=== PATIENT | male | born 1935 | race Caucasian/White ===

== ENCOUNTER 2016-05-11 09:32 | Day surgery (SDC) | payer MEDICARE, OTHER ==
[~2016-05-11] VITALS: Ht 175.3 cm; Wt 81.2 kg
[2016-05-11] VITALS (33 sets, daily range): BP systolic 84–137; BP diastolic 49–72; PULSE 62–78; RESP 6–20; Ht 175.3 cm; Wt 81.2 kg
[2016-05-11] MEDS ORDERED: LACTATED RINGER'S 1,000 ML IV* SCH (10:30)
[2016-05-11] MEDS ORDERED: CEFAZOLIN 2 GM/50 ML (PMX) 50 ML IVPB SCH (10:30)
--- NOTE | 2016-05-11 11:07 | RADRPT ---
PROCEDURE: XR Chest 1 View. CLINICAL INDICATION: Abnormal breath sounds, preop. TECHNIQUE: AP view of the chest were obtained. COMPARISON: None. FINDINGS: The cardiomediastinal silhouette is within normal limits. The lungs are hypoinflated. Scattered ate lectasis is noted in the bilateral lower lobes. No consolidations are identified. No pneumothorax i s seen. Osseous structures are intact. IMPRESSION: Hypoinflated lungs with scattered atelectasis in the bilateral lower lobes. RPTAT: AA .Harry Turk MD, MD Date Time Electronically viewed and signed by .Harry Turk MD, MD on 05/11/2016 11:07 .P/
[2016-05-11] MEDS ORDERED: HYDR12.58 PO (11:15)
[2016-05-11] MEDS ORDERED: LOSA50TA6 PO (11:15)
[2016-05-11] MEDS ORDERED: BUPIVACAINE 0.25%/EPI (SDV) 30 ML INJ ONE (11:52)
[2016-05-11] MEDS ORDERED: SURGIFOAM POWDER 1 GM KIT ONE (11:52)
[2016-05-11] MEDS ORDERED: CA CHLORIDE 10% 10 ML SYRINGE ONE (11:52)
[2016-05-11] MEDS ORDERED: POLYMYXIN/BACITRACIN 1L IRRIG ONE (11:53)
[2016-05-11] MEDS ORDERED: THROMBIN 5000 UNIT VIAL ONE (11:53)
[2016-05-11] MEDS ORDERED: LIDOCAINE 2% (SDV) 5 ML INJ ONE (12:11)
[2016-05-11] MEDS ORDERED: MEPERIDINE 100 MG INJ ONE (12:11)
[2016-05-11] MEDS ORDERED: NEOSTIGMINE 3 MG/3 ML SYRINGE ONE ×2 (12:11→14:19)
[2016-05-11] MEDS ORDERED: SUCCINYLCHOLINE CHLORIDE 100 MG/5 ML SYG IV ONE (12:11)
[2016-05-11] MEDS ORDERED: GLYCOPYRROLATE 1 MG INJ ONE (12:11)
[2016-05-11] MEDS ORDERED: PROPOFOL 20 ML ONE (12:11)
[2016-05-11] MEDS ORDERED: ROCURONIUM 50 MG INJ ONE ×2 (12:11→12:55)
--- NOTE | 2016-05-11 12:11 | HPN ---
Date/Time of Note Date/Time of Note DATE: 05/11/16 TIME: 12:10 Interval H&P Admission Note Pt. seen H&P reviewed: No system changes BENJI HAYWOOD PA-C May 11, 2016 12:10
[2016-05-11] MEDS ORDERED: MELO7.5O PO (12:26)
[2016-05-11] MEDS ORDERED: TAMS-14 PO (12:26)
[2016-05-11] MEDS ORDERED: TEST1.25 TD (12:26)
[2016-05-11] MEDS ORDERED: ATOR10TA65 PO (12:26)
[2016-05-11] MEDS ORDERED: NALOXONE (0.4 MG/ML) INJ IV PRN (12:30)
[2016-05-11] MEDS ORDERED: ACETAMINOPHEN 325 MG TAB PO PRN (12:30)
[2016-05-11] MEDS ORDERED: CEFAZOLIN 1 GM/50 ML (PMX) 50 ML IVPB SCH (12:30)
[2016-05-11] MEDS ORDERED: ONDANSETRON 4 MG INJ IV PRN ×2 (12:30→13:00)
[2016-05-11] MEDS ORDERED: DIPHENHYDRAMINE 50 MG INJ IV PRN ×2 (12:30→13:00)
[2016-05-11] MEDS ORDERED: AL HYDROX/MG HYDROX/SIMETH 30 ML CUP PO PRN (12:30)
[2016-05-11] MEDS ORDERED: BISACODYL 10 MG SUPP PR PRN (12:30)
[2016-05-11] MEDS ORDERED: HYDROmorphONE 1 MG/ML SYG IV PRN (12:30)
[2016-05-11] MEDS ORDERED: CEPASTAT LOZENGE MT PRN (12:30)
[2016-05-11] MEDS ORDERED: CYCLOBENZAPRINE 10 MG TAB PO PRN (12:30)
[2016-05-11] MEDS ORDERED: OXYCODONE/ACETAMINOPHEN (5/325) TAB PO PRN (12:30)
[2016-05-11] MEDS ORDERED: morphine (1 MG/ML) 10ML SYRINGE IV PRN ×2 (13:00)
[2016-05-11] MEDS ORDERED: MIDAZOLAM 1 MG/ML 2 ML INJ IV PRN (13:00)
[2016-05-11] MEDS ORDERED: FENTAnyl 50 MCG/ML VIAL IV PRN ×2 (13:00)
[2016-05-11] MEDS ORDERED: LABETALOL HCL 20MG INJ IV PRN (13:00)
[2016-05-11] MEDS ORDERED: HYDROmorphONE (0.2 MG/ML) 10ML SYG IV PRN ×2 (13:00)
[2016-05-11] MEDS ORDERED: METOCLOPRAMIDE 10 MG INJ IV PRN (13:00)
[2016-05-11] MEDS ORDERED: MEPERIDINE 25 MG INJ IV PRN (13:00)
[2016-05-11] MEDS ORDERED: EPHEDrine SULFATE 50 MG/5 ML SYG IV PRN (13:00)
[2016-05-11] MEDS ORDERED: hydrALAzine 20 MG INJ IV PRN (13:00)
--- NOTE | 2016-05-11 14:18 | RADRPT ---
PROCEDURE: XR Lumbar Spine one view. CLINICAL INDICATION: Low back pain. Intraoperative. TECHNIQUE: Prone portable cross-table lateral. COMPARISON: No prior studies are available for comparison. FINDINGS: For the purposes of this report, the last apparent true disc level is considered to be L5-S1. Based on this, the posterior surgical instrument is present at the mid L4 level. IMPRESSION: 1. Intraoperative imaging as described above. RPTAT: QQ .Jamal Iqbal MD, MD Date Time Electronically viewed and signed by .Jamal Iqbal MD, on 05/11/2016 14:18 .R/
--- NOTE | 2016-05-11 14:18 | RADRPT ---
PROCEDURE: XR Lumbar Spine one view. CLINICAL INDICATION: Low back pain. Intraoperative. TECHNIQUE: Prone portable cross-table lateral. COMPARISON: No prior studies are available for comparison. FINDINGS: For the purposes of this report, the last apparent true disc level is considered to be L5-S1. Based on this, the posterior needle marker is are present at L3 and L4 spinous process levels. A posteri or surgical device is also present at L4-5. IMPRESSION: 1. Intraoperative imaging as described above. RPTAT: QQ .Jamal Iqbal MD, MD Date Time Electronically viewed and signed by .Jamal Iqbal MD, on 05/11/2016 14:18 .R/
[2016-05-11] MEDS ORDERED: ONDANSETRON 4 MG INJ ONE (14:19)
[2016-05-11] MEDS: HYDROmorphONE 0.2 MG/ML PCA IV SCH ×2 (15:55→15:57)
--- NOTE | 2016-05-11 16:23 | OPR ---
DATE OF OPERATION: 05/11/2016 PREOPERATIVE DIAGNOSES: 1. History of L4-L5 unstable listhesis and stenosis, status post decompression with placement of Co flex. 2. Spinous process fracture with loosening of Coflex. 3. Residual spinal stenosis and radiculopathy. POSTOPERATIVE DIAGNOSES: 11. History of L4-L5 unstable listhesis and stenosis, status post decompression with placement of C oflex. 2. Spinous process fracture with loosening of Coflex. 3. Residual spinal stenosis and radiculopathy. OPERATION PERFORMED: 1. Removal of Coflex at L4-L5. 2. Revision right L4-L5 decompression with decompression of L4 and L5 nerve roots. 3. Lateral localizing film x2. 4. Use of operative microscope. 5. Intraoperative neuromonitoring (2 hours). PRIMARY SURGEON: Hua Contreras MD VOLTAGE REGULATOR ASSEMBLER: KRISTIE Cano NEED FOR GENERAL MACHINIST: During this spinal surgical procedure, my assistant auditor was used to retrac t and protect the spinal nerves and dural sac. My assistant auditor also employed the suction catheters to evacuate blood from the surgical field to improve visualization of the neural structures. The timoteo tant was medically necessary to facilitate the completion of the surgery in a safe and expeditious tigist. State of [place] regulations, as well as hospital bylaws, preclude the use of non-license d health care personnel, such as operating room technicians, to perform these functions. FINDINGS: Neuromonitoring at the start of the case revealed right L4 amplitude down 20%, right L5 a mplitude down 50%. At the end of the case nerve signals returned to normal. The Coflex device was loose at the spinous process of L5. There is stenosis at L4-L5. ESTIMATED BLOOD LOSS: Less than 40 mL. DRAINS: None. SPECIMENS: Coflex was sent to Pathology. COMPLICATIONS OF PROCEDURES: None. ANESTHESIOLOGIST: Dr. Beckett. TYPE OF ANESTHESIA: General. INDICATIONS FOR PROCEDURE: This 89-year-old gentleman who underwent decompression with placement of Coflex device elsewhere. His left leg symptoms improved but he has residual right leg radiculopath y. Preoperative imaging study showed a possible fracture at L5. Given this the failure of nonopera tive measures, I recommended proceeding with above-mentioned surgery. Preoperatively, we discussed the risks, benefits, and alternatives. He understood and wished to proceed. DESCRIPTION OF PROCEDURE IN DETAIL: The patient was identified in the preoperative holding area and taken to the operating room, where he was successfully placed under general anesthesia. He was giv en antibiotics. Neuromonitoring leads were placed, sequential compressive devices were applied. Ne uromonitoring was utilized during the procedure for 2 hours to include SSEP, MEP and EMG. This was performed by [employer] Start time was 1 p.m., closure time was 3 p.m. The patient was plac ed in downward turned prone position over Noam frame. All bony prominences were well padded. The back was then prepped and draped in usual sterile fashion. Spinal needles were placed, lateral loc alizing films obtained to confirm the correct levels. Once this was confirmed, I injected the skin, subcutaneous tissue, and paraspinal musculature with 0.25% Marcaine and epinephrine. I utilized a portion of the patient's previous incision over the L4-5 level. Incision was taken down to dorsal f ascia, which was incised with Bovie cautery. I then dissected down to the hardware. The hardware w as loose (Coflex). I dissected off the soft tissue and I removed the Coflex device. I then subperi osteally dissected the right L4 and L5 lamina. Due to the patient's previous surgery and the hardwa re in place, there was significant scar tissue altering the field adding at least 45 minutes to the procedure. Once I had identified the L4 and L5 lamina, I took lateral film to confirm the correct l evels. Microscope was then brought in. Then, using a high-speed bur, I thinned down the lamina and I was able to perform a revision decompression at L4-5 on the right side using curettes, Kerrison p unches and pituitary rongeurs. I decompressed the lateral recess, removed a portion of the ligament um flavum in order to be able to identify the right L4 and L5 nerve roots, which were decompressed. Once this was done, all nerve signals returned to normal. I did examine the annulus and I did not identify any herniations. Hemostasis was achieved with bipolar cautery and Surgifoam. The wound wa s then copiously irrigated. Valsalva maneuver was performed and there was no leak of CSF. Nerve si gnals were normal. Anesthesiologist yobany peripheral blood, which was spun down using the [employer] evice. I took the platelet-poor plasma and mixed with thrombin and injected this over the dura for hemostatic purposes. The retractors were removed and the microscope was taken off the field. I shila sed the deep fascia with #1 Vicryl stitch. I closed subcutaneous tissue with 2-0 Vicryl stitch. A 4-0 Monocryl closure was then performed. Dermabond and sterile dressings were then applied. The pa tient was then awakened from anesthesia and taken to recovery room in stable condition. Lap, sponge and instrument counts were correct x2. There were no apparent complications during the procedure. The patient will be admitted to the [facility] for routine postoperative care to include pain c ontrol, neurovascular checks, antibiotics and physical therapy. Dictated By: HUA FOREMAN/KYLE Conf#: [id number] DID#: [id number]
--- NOTE | 2016-05-11 17:31 | CONS ---
Date/Time of Note Date/Time of Note DATE: 05/11/16 TIME: 17:26 Assessment/Plan Assessment/Plan Problems: (1) Essential hypertension Status: Chronic Comment: Resume outpatient treatment starting with the H2 receptor conchita in the morning. (2) Vitamin D deficiency Status: Chronic Comment: Noted and reportedly replaced (3) Lumbar spinal stenosis Status: Chronic Comment: Postop (4) Aftercare following surgery of the musculoskeletal system Status: Acute Comment: Immediate postoperative period appears to be without complication so far pain control is adequate (5) BPH NOS w ur obs/LUTS Status: Chronic Comment: Continue tamsulosin (6) Hyperlipidemia Status: Chronic Comment: Continue statin therapy Qualifiers: Qualified Code: E78.00 - Pure hypercholesterolemia (7) Celiac disease Status: Chronic Comment: Noted (8) Testicular hypofunction Status: Chronic Comment: Noted we will give him 1 dose of IM testosterone to assist with the postop recuperative phase Consultation Date/Type/Reason Admit Date/Time May 11, 2016 at 09:32 Date of Consultation: May 11, 2016 Type of Consultation: Internal medicine Reason for Consultation Postop care for general medical problems after back surgery (hypertension; hyperlipidemia; hypogonadism; BPH etc.) Referring Provider: AAKASH HOLT MD Hx of Present Illness Charming 80-year-old gentleman brought in for spinal surgery redo to assist with right leg symptoms. Constitutional: no complaints (Denies fevers chills or sweats) Eyes: no complaints ENT: no complaints Respiratory: no complaints Cardiovascular: no complaints Gastrointestinal: no complaints Genitourinary: no complaints (Note patient has BPH) Musculoskeletal: back pain (Surgical back pain) Skin: no complaints Neurologic: no complaints Endocrine: no complaints Past Medical History Essential hypertension; spinal stenosis with spondylolisthesis; vitamin D deficiency; BPH; hyperlipidemia; celiac disease; hypogonadism; usual childhood diseases Medical History: hypertension Past Surgical History Status post cataract extraction and intraocular lens implantation; status post laser prostatectomy 2009; status post lumbar laminectomy Family History Significant Family History: heart disease, hypertension, other (Father with abdominal aortic aneurysm; positive for celiac disease) Social History Alcohol Use: occasionally Smoking Status: Former smoker Drug Use: none Exam/Review of Systems Vital Signs Vitals Vital Signs Date Time Temp Pulse Resp B/P Pulse Ox O2 Delivery O2 Flow Rate FiO2 05/11/16 16:07 66 20 102/54 99 Nasal Cannula 2.0 05/11/16 15:35 99.1 Exam Constitutional: alert, oriented Psych: no complaints Head: atraumatic, normocephalic Eyes: EOMI, nl conjunctiva, nl lids, nl sclera ENMT: mucosa pink and moist, nl external ears & nose, nl lips & teeth, nl nasal mucosa & septum Neck: non-tender, supple Respiratory: clear to auscultation, normal air movement Cardiovascular: nl pulses, regular rate and rhythm Gastrointestinal: nl liver, spleen, non-tender, soft Extremities: normal pulses Neurological: CONSTRUCTION LABORER II-XII intact, nl mental status, nl speech Skin: nl turgor Medications Medications Current Medications Cefazolin Sodium/ Dextrose 50 ml @ 0 mls/hr PREOP IVPB ; Start 05/11/16 at 10:30 ; Stop 05/11/16 at 23:00 Lactated Ringer's 1,000 ml @ 0 mls/hr Q0M IV* ; Start 05/11/16 at 10:30; Stop at 23:00 Potassium Chloride/Dextrose/ Sod Cl (D5-1/2ns + KCl 20 Meq) 1,000 ml @ 100 mls/ hr Q10H IV ; Start 05/11/16 at 12:10 Oxycodone/ Acetaminophen (Percocet (5/ 325)) 1 tab Q4H PRN PO PAIN LEVEL 1-5; Start 05/11/16 at 12:30 Oxycodone/ Acetaminophen (Percocet (5/ 325)) 2 tab Q4H PRN PO PAIN LEVEL 6-10; Start 05/11/16 at 12:30 Hydromorphone HCl 0.2 mg 0.2 mg Q1H PRN IV BREAKTHROUGH PAIN; Start 05/11/16 at 12:30 Cefazolin Sodium (Ancef 1 Gm/50 ml (Pmx)) 50 ml @ 100 mls/hr Q8 IVPB ; Start at 12:30; Stop 05/11/16 at 22:29 Ondansetron HCl (Zofran Inj) 4 mg Q6H PRN IV NAUSEA AND/OR VOMITING; Start 05/11 at 12:30 Bisacodyl (Dulcolax Supp) 10 mg DAILY PRN ND CONSTIPATION; Start 05/11/16 at 12: 30 Docusate Sodium (Colace) 100 mg BID PO ; Start 05/11/16 at 21:00 Al Hydrox/Mg Hydrox/Simethicone (Mag-Al Plus) 15 ml Q6H PRN PO CONSTIPATION/ DYSPEPSIA; Start 05/11/16 at 12:30 Acetaminophen (Tylenol Tab) 650 mg Q4H PRN PO DILLARD OR TEMP GREATER THAN 101.3F; Start 05/11/16 at 12:30 Cyclobenzaprine HCl (Flexeril) 10 mg TID PRN PO MUSCLE SPASMS; Start 05/11/16 at 12:30 Phenol (Cepastat Lozenge) 1 lozenge PRN PRN MT SORE THROAT; Start 05/11/16 at 12 :30 Diphenhydramine HCl (Benadryl) 25 mg Q6H PRN IV ITCHING; Start 05/11/16 at 12:30 Naloxone HCl (Narcan) 0.2 mg Q2M PRN IV RR 8 BREATHS/MIN OR LESS; Start at 12:30 Hydromorphone HCl (Dilaudid FIELD EDUCATION COORDINATOR) FIELD EDUCATION COORDINATOR to be started in PACU Q4PCA IV Last administered on 05/11/16t 15:57; Admin Dose 6 MG; Start 05/11/16 at 12:30; Stop at 10:00 Miscellaneous Information 1. Hold FIELD EDUCATION COORDINATOR at 1,000... FIELD EDUCATION COORDINATOR IV ; Start 05/11/16 at 12: 30; Stop 05/12/16 at 10:00 MARNI GONZALEZ MD May 11, 2016 17:31
[2016-05-11] MEDS ORDERED: TESTOSTERONE CYPIONATE 200 MG IM ONE (18:30)
[2016-05-11] MEDS: D5W-0.45 NACL + KCL 20 MEQ 1,000 ML IV SCH ×2 (18:54→22:10)
[2016-05-11] MEDS: DOCUSATE SODIUM 100 MG CAP PO SCH (20:54)
[2016-05-11] MEDS ORDERED: ATORVASTATIN 10 MG TAB PO SCH (21:00)
[2016-05-11] MEDS ORDERED: TAMSULOSIN (SR) 0.4 MG CAP PO SCH (21:00)
[2016-05-12] MEDS: ZOLPIDEM 5 MG TAB PO PRN ×2 (00:09→01:52)
[2016-05-12 00:17] VITALS: BP 172/81; PULSE 84; RESP 18
[2016-05-12 01:53] VITALS: BP 136/70; PULSE 80; RESP 20
[2016-05-12 04:57] LABS: ADD SCAN DIFF NO
[2016-05-12] MEDS ORDERED: CEFAZOLIN 1 GM/50 ML (PMX) 50 ML IVPB SCH (05:00)
[2016-05-12 05:08] LABS: ABNORMAL IP MESSAGE 1; BASOPHILS % 0.3 % (0.0-2.0); EOSINOPHILS % 0.1 % (0.0-7.0); HEMATOCRIT 36.5 % (42.0-52.0); LYMPHOCYTES # 0.6 10^3/ul (0.8-2.9); LYMPHOCYTES % 6.5 % (15.0-51.0); MEAN CORPUSCULAR HEMOGLOBIN 32.2 pg (29.0-33.0); MEAN CORPUSCULAR HGB CONC 35.6 g/dl (32.0-37.0); MEAN CORPUSCULAR VOLUME 90.3 fl (82.0-101.0); MEAN PLATELET VOLUME 9.6 fl (7.4-10.4); MONOCYTE # 0.7 10^3/ul (0.3-0.9); MONOCYTES % 7.5 % (0.0-11.0); NEUTROPHIL # 7.3 10^3/ul (1.6-7.5); NEUTROPHILS % 85.3 % (39.0-77.0); PLATELET COUNT 173 10^3/UL (140-415); RED BLOOD COUNT 4.04 10^6/ul (4.70-6.10); RED CELL DISTRIBUTION WIDTH 12.4 % (11.5-14.5); WHITE BLOOD COUNT 8.6 10^3/ul (4.8-10.8)
[2016-05-12 05:32] LABS: POTASSIUM 3.9 mmol/L (3.5-5.1)
[2016-05-12 05:35] LABS: CALCIUM 8.5 mg/dl (8.4-10.2); CREATININE 0.66 mg/dl (0.61-1.24)
[2016-05-12 05:36] LABS: MAGNESIUM 1.8 mg/dl (1.7-2.5)
[2016-05-12] MEDS: D5W-0.45 NACL + KCL 20 MEQ 1,000 ML IV SCH (05:40)
[2016-05-12] MEDS: CEFAZOLIN 1 GM/50 ML (PMX) 50 ML IVPB SCH ×2 (05:40→13:48)
[2016-05-12] MEDS ORDERED: PANTOPRAZOLE (EC) 40 MG TAB PO SCH (07:00)
--- NOTE | 2016-05-12 07:15 | PN ---
Date/Time of Note Date/Time of Note DATE: 05/12/16 TIME: 07:11 Assessment/Plan Lines/Catheters IV Catheter Type (from Nrsg): Peripheral IV Harrison in Place (from Nrsg): Yes Assessment/Plan Assessment/Plan continue pain control continue PT, ambulate urecholine now as ordered D/C harrison today 05/12 at 1300 if able to urinate anticipate D/C later today Subjective 24 Hr Interval Summary patient c/o LBP difficulty urinating - harrison was re-inserted Exam/Review of Systems Vital Signs Vitals Vital Signs Date Time Temp Pulse Resp B/P Pulse Ox O2 Delivery O2 Flow Rate FiO2 05/12/16 05:41 18 05/12/16 01:53 97.8 80 136/70 98 Room Air 05/11/16 19:05 2.0 Intake and Output 05/11/16 05/11/16 05/12/16 15:00 23:00 07:00 Intake Total 850 ml 1510 ml Output Total 20 ml 800 ml Balance 830 ml 710 ml Exam Free Text/Dictation AOx3 NVID dressing intact Results Result Diagram: 05/12/16 0420 05/12/16 0420 BENJI HAYWOOD PA-C May 12, 2016 07:15
[2016-05-12 07:44] VITALS: BP 125/65; RESP 18
[2016-05-12] MEDS ORDERED: LOSARTAN 50 MG TAB PO SCH (09:00)
[2016-05-12] MEDS: DOCUSATE SODIUM 100 MG CAP PO SCH (09:49)
[2016-05-12] MEDS: OXYCODONE/ACETAMINOPHEN (5/325) TAB PO PRN ×2 (09:49→12:10)
[2016-05-12] MEDS ORDERED: BETHANECHOL 25 MG TAB PO ONE (12:30)
[2016-05-12] MEDS ORDERED: ALUMINUM HYDROXIDE 30 ML CUP PO ONE (15:00)
--- NOTE | 2016-05-12 15:28 | CONS ---
Date/Time of Note Date/Time of Note DATE: 05/12/16 TIME: 15:26 Assessment/Plan Assessment/Plan Chief Complaint/Hosp Course Margie 80-year-old gentleman brought in for spinal surgery redo to assist with right leg symptoms. Problems: (1) BPH NOS w ur obs/LUTS Status: Chronic Comment: He is on alpha blockade. This may be a bit of an issue and his regular urologist is at [facility]. If necessary we will have to repeat catheterizing or even send him home with a catheter. (2) Hyperlipidemia Status: Chronic Comment: Controlled Qualifiers: Hyperlipidemia type: pure hypercholesterolemia Qualified Code: E78.00 - Pure hypercholesterolemia (3) Lumbar spinal stenosis Status: Chronic Comment: Symptoms are improved postoperatively (4) Aftercare following surgery of the musculoskeletal system Status: Acute Comment: Progressing well postoperatively with the exception of the urinary function which was actually a preoperative issue unrelated to the surgery or the lumbar spinal stenosis (5) Essential hypertension Status: Chronic Comment: Controlled Consultation Date/Type/Reason Admit Date/Time Initial Consult Date 05/11/16 Type of Consultation: Internal medicine Referring Provider: AAKASH HOLT MD 24 HR Interval Summary Constitutional: no complaints Detailed Summary Respiratory: no complaints Cardiovascular: no complaints Gastrointestinal: no complaints Genitourinary: other (Difficulty voiding although he tried while laying flat in bed) Exam/Review of Systems Vital Signs Vitals Vital Signs Date Time Temp Pulse Resp B/P Pulse Ox O2 Delivery O2 Flow Rate FiO2 05/12/16 10:00 16 05/12/16 07:44 97.8 82 125/65 96 05/12/16 01:53 Room Air 05/11/16 19:05 2.0 Intake and Output 05/11/16 05/11/16 05/12/16 15:00 23:00 07:00 Intake Total 850 ml 1510 ml Output Total 20 ml 800 ml Balance 830 ml 710 ml Exam Constitutional: alert, oriented Respiratory: clear to auscultation, normal air movement Cardiovascular: nl pulses, regular rate and rhythm Gastrointestinal: nl liver, spleen, non-tender, soft Results Result Diagram: 05/12/16 0420 05/12/16 0420 Results 24 hrs Laboratory Tests Test 05/12/16 04:20 Anion Gap 11 Basophils # 0.0 Basophils % 0.3 Blood Urea Nitrogen 10 Calcium Level 8.5 Carbon Dioxide Level 29 Chloride Level 93 L Creatinine 0.66 Eosinophils # 0.0 Eosinophils % 0.1 Glucose Level 137 Hematocrit 36.5 L Hemoglobin 13.0 L Lymphocytes # 0.6 L Lymphocytes % 6.5 L Magnesium Level 1.8 Mean Corpuscular Hemoglobin 32.2 Mean Corpuscular Hemoglobin Concent 35.6 Mean Corpuscular Volume 90.3 Mean Platelet Volume 9.6 Monocytes # 0.7 Monocytes % 7.5 Neutrophils # 7.3 Neutrophils % 85.3 H Nucleated Red Blood Cells # 0.0 Nucleated Red Blood Cells % 0.0 Platelet Count 173 Potassium Level 3.9 Red Blood Count 4.04 L Red Cell Distribution Width 12.4 Sodium Level 129 L White Blood Count 8.6 Medications Medications Current Medications Potassium Chloride/Dextrose/ Sod Cl (D5-1/2ns + KCl 20 Meq) 1,000 ml @ 100 mls/ hr Q10H IV Last administered on 05/12/16 05:40; Admin Dose 100 MLS/HR; Start at 12:10 Oxycodone/ Acetaminophen (Percocet (5/ 325)) 1 tab Q4H PRN PO PAIN LEVEL 1-5 Last administered on 05/12/16 12:10; Admin Dose 1 TAB; Start 05/11/16 at 12:30 Oxycodone/ Acetaminophen (Percocet (5/ 325)) 2 tab Q4H PRN PO PAIN LEVEL 6-10; Start 05/11/16 at 12:30 Hydromorphone HCl (Dilaudid) 0.2 mg Q1H PRN IV BREAKTHROUGH PAIN; Start at 12:30 Ondansetron HCl (Zofran Inj) 4 mg Q6H PRN IV NAUSEA AND/OR VOMITING; Start 05/11 at 12:30 Bisacodyl (Dulcolax Supp) 10 mg DAILY PRN OR CONSTIPATION; Start 05/11/16 at 12: 30 Docusate Sodium (Colace) 100 mg BID PO Last administered on 05/12/16 09:49; Admin Dose 100 MG; Start 05/11/16 at 21:00 Al Hydrox/Mg Hydrox/Simethicone (Mag-Al Plus) 15 ml Q6H PRN PO CONSTIPATION/ DYSPEPSIA Last administered on 05/12/16 06:49; Admin Dose 15 ML; Start 05/11/16 at 12:30 Acetaminophen (Tylenol Tab) 650 mg Q4H PRN PO DILLARD OR TEMP GREATER THAN 101.3F; Start 05/11/16 at 12:30 Cyclobenzaprine HCl (Flexeril) 10 mg TID PRN PO MUSCLE SPASMS Last administered on 05/12/16 12:56; Admin Dose 10 MG; Start 05/11/16 at 12:30 Phenol (Cepastat Lozenge) 1 lozenge PRN PRN MT SORE THROAT Last administered on 05/11/16 23:47; Admin Dose 1 LOZENGE; Start 05/11/16 at 12:30 Diphenhydramine HCl (Benadryl) 25 mg Q6H PRN IV ITCHING; Start 05/11/16 at 12:30 Naloxone HCl (Narcan) 0.2 mg Q2M PRN IV RR 8 BREATHS/MIN OR LESS; Start at 12:30 Tamsulosin HCl (Flomax) 0.4 mg HS PO Last administered on 05/11/16 20:54; Admin Dose 0.4 MG; Start 05/11/16 at 21:00 Atorvastatin Calcium (Lipitor) 10 mg HS PO Last administered on 05/11/16 20:54 ; Admin Dose 10 MG; Start 05/11/16 at 21:00 Losartan Potassium (Cozaar) 50 mg DAILY PO Last administered on 05/12/16 09:50 ; Admin Dose 50 MG; Start 05/12/16 at 09:00 Pantoprazole (Protonix Tab) 40 mg DAILY@06 PO Last administered on 05/12/16 06: 53; Admin Dose 40 MG; Start 05/12/16 at 07:00 MARNI GONZALEZ MD May 12, 2016 15:28
== END 2016-05-12 18:21 | disposition home or self-care (01) ==
LOC: REC 09:32 → UNDOADMIN 09:32 → SDS 09:32 → EDSTATUS 14:30 → MS1 17:05 → REC 17:05 → MS1 17:05 → SDS 05-12 18:21
PROVIDERS: ATTEND Specialist
DX: M48.06 Spinal stenosis, lumbar region (principal); Z45.89 Encounter for adjustment and management of other implanted devices; E78.5 Hyperlipidemia, unspecified; I10 Essential (primary) hypertension; N40.0 Benign prostatic hyperplasia without lower urinary tract symptoms; K90.0 Celiac disease; E29.1 Testicular hypofunction
CPT/HCPCS: 22850; 63030; 71010; 72020; 80048; 83735; 85025; 86999; 88300; 97116; 97163; 97530; A4310; G8978; G8979; J0330; J0690; J1071; J1170; J2175; J2405; J2710; J3480